=== PATIENT | female | born 1990 | race Two or more races ===

== ENCOUNTER → 2025-06-24 | Outpatient (CLI) | payer OTHER ==
[2025-06-24 18:09] LABS: FREE T4 1.16 NG/DL (0.89-1.76)
[2025-06-24 18:10] LABS: LUTEINIZING HORMONE 17.0 mIU/ML; PROLACTIN 8.67 NG/ML
[2025-06-24 18:11] LABS: ESTRADIOL 365.1 PG/ML
[2025-06-27 01:07] LABS: DEHYDROEPIANDROSTERONE SULFATE 166 mcg/dL (19-237)
== END ==
LOC: M PLALAB 15:16
PROVIDERS: ATTEND Student in an Organized Health Care Education/Training Program
DX: N97.9 Female infertility, unspecified (principal)

== ENCOUNTER → 2025-06-24 | Outpatient (REF) | payer OTHER | LOC: M PLALAB 15:19 | PROVIDERS: ATTEND Student in an Organized Health Care Education/Training Program | DX: N89.8 Other specified noninflammatory disorders of vagina (principal) ==